=== PATIENT | male | born 1960 ===

== ENCOUNTER 2017-03-10 05:57 | Day surgery (SDC) | payer OTHER ==
--- NOTE | ~2017-03-10 | EGD ---
EGD REPORT [facility] [address] [address] NAME: MIKE BROWER : [birth year] STATUS : REG [facility]#: [id number] AGE: 56 ADM/REG DATE : 03/10/17 MR#: [id number] REPORT SERV DATE: 03/10/17 DICTATED BY: JENNA BOSWELL DATE: 03/10/17 REPORT STATUS : Draft TRANSCRIBED BY: [employer] DATE: 03/10/17 [facility] Patient Name: Mike Brower Date of : 1960 Attending MD: JENNA BOSWELL, Procedure Date No Time: 03/10/2017 Procedure: Colonoscopy Indications: Hematochezia, Abnormal CT of the GI tract Referring MD: LIZZ THAO Medicines: Monitored Anesthesia Care Complications: No immediate complications. Estimated blood loss: None. Procedure: Pre-Anesthesia Assessment: - ASA Grade Assessment: III - A patient with severe systemic disease. After I obtained informed consent, the scope was passed under direct vision. Throughout the procedure, the patient's blood pressure, pulse, and oxygen saturations were monitored continuously. The CF [id number] was introduced through the anus and advanced to the cecum, identified by appendiceal orifice and ileocecal valve. The colonoscopy was performed without difficulty. The patient tolerated the procedure well. The quality of the bowel preparation was fair. Findings: The perianal and digital rectal examinations were normal. A large amount of stool was found in the entire colon, interfering with visualization. Patchy mild inflammation characterized by erosions and erythema was found in the descending colon. Biopsies were taken with a cold forceps for histology. Verification of patient identification for the specimen was done. Estimated blood loss was minimal. A sessile polyp was found at the splenic flexure. The polyp was 3 mm in size. The polyp was removed with a cold biopsy forceps. Resection and retrieval were complete. Verification of patient identification for the specimen was done. Estimated blood loss was minimal. A sessile polyp was found in the sigmoid colon. The polyp was 4 mm in size. The polyp was removed with a cold biopsy forceps. Resection and retrieval were complete. Verification of patient identification for the specimen was done. Estimated blood loss was minimal. The exam was otherwise without abnormality. Impression: - Stool in the entire examined colon. - Patchy mild inflammation was found in the descending colon secondary to ischemic colitis. Biopsied. EGD REPORT [address] [place]. [address] NAME: MIKE BROWER : [birth year] STATUS : REG [facility] PAT#: [id number] AGE: 56 ADM/REG DATE : 03/10/17 MR#: [id number] REPORT SERV DATE: 03/10/17 DICTATED BY: JENNA BOSWELL DATE: 03/10/17 REPORT STATUS : Draft TRANSCRIBED BY: [employer] DATE: 03/10/17 - One 3 mm polyp at the splenic flexure. Resected and retrieved. - One 4 mm polyp in the sigmoid colon. Resected and retrieved. - The examination was otherwise normal. Recommendation: - Patient has a contact number available for emergencies. The signs and symptoms of potential delayed complications were discussed with the patient. Return to normal activities tomorrow. Written discharge instructions were provided to the patient. - Return to previous diet. - Continue present medications. - Await pathology results. - Repeat colonoscopy for surveillance based on pathology results. Procedure Code(s): --- Professional --- 71206, Colonoscopy, flexible, proximal to splenic flexure; with biopsy, single or multiple Diagnosis Code(s): --- Professional --- K55.9, Vascular disorder of intestine, unspecified D12.5, Benign neoplasm of sigmoid colon D12.3, Benign neoplasm of transverse colon K92.1, Melena R93.3, Abnormal findings on diagnostic imaging of other parts of digestive tract CPT copyright 2013 [employer] [employer]. All rights reserved. The codes documented in this report are preliminary and upon disaster director review may be revised to meet current compliance requirements. JENNA BOSWELL, 03/10/2017 8:32 AM Number of Addenda: 0 Note Initiated On: 03/10/2017 7:52 AM Scope Withdrawal Time 0 hours 15 minutes 42 seconds [address] [id number]
[~2017-03-10 05:57] MED LIST: ASABAYER PO; AVODART PO; FLOMAX4 PO; LOP50 PO; MSCONT60 PO; PRAVACHOL40 MG PO; PRIN10 PO; ZANAFLEX 4 MG TA4 MG PO; ZESTRIL30 MG PO
== END 2017-03-10 23:59 | disposition home health service (06) ==
LOC: DMU 05:57
PROVIDERS: Internal Medicine Gastroenterology
PROC: 0DBN8ZX Excision of Sigmoid Colon, Via Natural or Artificial Opening Endoscopic, Diagnostic (ICD-10-PCS; 2017-03-10)
PROC: 0DBL8ZX Excision of Transverse Colon, Via Natural or Artificial Opening Endoscopic, Diagnostic (ICD-10-PCS; 2017-03-10)
PROC: 0DBM8ZX Excision of Descending Colon, Via Natural or Artificial Opening Endoscopic, Diagnostic (ICD-10-PCS; principal; 2017-03-10 08:00)
DX: D12.5 Benign neoplasm of sigmoid colon (principal); D12.3 Benign neoplasm of transverse colon; E66.01 Morbid (severe) obesity due to excess calories; K55.9 Vascular disorder of intestine, unspecified; G47.33 Obstructive sleep apnea (adult) (pediatric); E78.5 Hyperlipidemia, unspecified; I48.91 Unspecified atrial fibrillation; I10 Essential (primary) hypertension; G43.909 Migraine, unspecified, not intractable, without status migrainosus; E78.00 Pure hypercholesterolemia, unspecified; Z98.890 Other specified postprocedural states
CPT/HCPCS: 87493; 87493-59; 88305